=== PATIENT | female | born 2000 | race Caucasian/White ===

== ENCOUNTER 2019-07-02 08:52 | Emergency (ER) | payer BC, OTHER ==
[2019-07-02 09:12] VITALS: BP 130/87
[2019-07-02] MEDS ORDERED: Ondansetron ODT TAB* 4 MG PO ONE (09:55)
[2019-07-02] MEDS ORDERED: Ketorolac INJ* 30 MG/ML 1 ML VIAL IM ONE (09:55)
--- NOTE | 2019-07-02 11:06 | UC ---
Abdominal Pain Female HPI - HPI Summary HPI Summary: Patient's a 19-year-old female who states yesterday afternoon she developed a sharp right lower quadrant pain that radiated to her left lower quadrant. Patient states since this time she has a mild deep ache. Patient states she has nausea but no vomiting. No fevers or chills. Patient denies any dysuria or hematuria. Patient states she is not . Patient with a remote history of ovarian cysts and states this feels similar. Patient without any back pain. No vaginal discharge, itching, odor. Patient has not taken anything for pain. Patient with decreased by mouth because she is nauseous. Patient's medications reviewed this visit. - History of Current Complaint Chief Complaint: UCGI Stated Complaint: NAUSEA Time Seen by Provider: 07/02/19 09:40 Hx Obtained From: Patient, Family/Engine Cleaner Hx Last Menstrual Period: June 07- Pain Intensity: 0 Allergies/Adverse Reactions: Allergies Allergy/AdvReac Type Severity Reaction Status Date / Time No Known Allergies Allergy Verified 07/02/19 09:12 Home Medications: Home Medications Control 07/02/19 [History] PMH/Surg Hx/FS Hx/Imm Hx Previously Healthy: Yes - Surgical History Surgical History: Yes Surgery Procedure, Year, and Place: fx elbow - Family History Known Family History: Positive: Non-Contributory - Social History Occupation: Employed Part-time Alcohol Use: Rare Substance Use Type: None Smoking Status (MU): Never Smoked Tobacco Review of Systems All Other Systems Reviewed And Are Negative: Yes Constitutional: Positive: Negative Skin: Positive: Negative Eyes: Positive: Negative ENT: Positive: Negative Gastrointestinal: Positive: Abdominal Pain, Nausea Genitourinary: Positive: Negative. Negative: Dysuria, Hematuria, Frequency, Urgency Physical Exam - Summary Physical Exam Summary: Vital Signs Reviewed: Yes A+Ox3, no distress Eyes: Conjunctiva Clear, DEMETRIA. EOM intact and full ENT: Hearing grossly normal TM x 2 clear, mmoist, uvula midline, no exudate, no erythema Neck: Positive: Supple Respiratory: Positive: No respiratory distress, No accessory muscle use + CTA throughout no w/r Cardiovascular: RRR nl s1, s2 no m/r CBT <2 sec abd soft + BS no distension, soft mild TTP lower quad R>L go guarding, no CVA Musculoskeletal Exam: CASANOVA x 4 without difficulty Strength Intact, ROM Intact Neurological: Positive: Alert, + sensation throughout Psychological: Positive: Normal Response To wafer mounter Skin: Positive: no rash, no ecchymosis Triage Information Reviewed: Yes Vital Signs: Initial Vital Signs Temp 99.3 F 07/02/19 09:06 Pulse 94 07/02/19 09:06 Resp 18 07/02/19 09:06 BP 130/87 07/02/19 09:06 Pulse Ox 100 07/02/19 09:06 Re-Evaluation - Re-Evaluation First Eval Change: Improved - nausea resolved, no pain reviewed US with pt - no clear dx after discussion - pt will d/c home - close monitor - will go to ED if fever, increased pain, vomiting -did discuss posisbility f ealry appendicitis Abd Pain Female Course/Dx - Course Course Of Treatment: Patient presents for evaluation of nausea and mild lower abdominal pain. Patient states initially had sharp right lower quadrant pain that radiated across both quadrants. This has minimize blister present. Patient with nausea but no vomiting. No fevers or chills. On exam vital signs are stable. Patient well-appearing well-hydrated. Patient does have mild discomfort in her lower quadrants. No guarding or rebound. Patient with a history of ovarian cyst. We'll check ultrasound for ovarian cysts, free fluid as well as full. We 'll also request that they look for the gallbladder. Additionally, we will give patient Zofran and IM Toradol. We'll closely reassess. Patient's aware that he not be able to eliminate all possibilities for cause of pain and may be recommended to go to the ED. Patient states understanding agreement with plan. We'll reassess - Differential Dx/Diagnosis Provider Diagnosis: Pelvic pain Discharge ED - Sign-Out/Discharge Documenting (check all that apply): Patient Departure All imaging exams completed and their final reports reviewed: Yes - Discharge Plan Condition: Stable Disposition: HOME Prescriptions: Ondansetron ODT TAB* [Zofran 4 MG Odt TAB*] 4 mg PO Q4H PRN #10 tab.odt PRN Reason: Nausea Patient Education Materials: Acute Abdominal Pain (ED) Forms: *Gen. Provider Communication, *Work Release Referrals: William Hoang MD [Primary Care Provider] - Additional Instructions: As discussed - the evaluation did not find a cause of your abominal. The doctor that evaluated you thinks it is safe for you to go home and monitor your symptoms. If you develop increased or recurrent pain, vomiting, fevers, or ANY other concerns it is recommended you go to the emergency department for further evaluation and treatment. -For the first 6 hours, eat and drink clears (water, radha miya, soup broth, jello, popsicles, Gatorade). If you tolerate this okay, add bland foods such as dry toast, scrambled eggs, crackers. Wait until you are feeling better for 24 hours before eating spicy food, acidic food, tomato based food, fried food. - Take nausea medication as prescribed - Contact your primary doctor or return with questions or concerns - Billing Disposition and Condition Condition: STABLE Disposition: Home
== END 2019-07-02 11:21 | disposition home or self-care (01) ==
LOC: UCCORT 08:52
DX: R10.2 Pelvic and perineal pain (principal)
CPT/HCPCS: 76705; 76830; 81003; 84702; 99202; A9270-GY; G0463; J1885